=== PATIENT | female | born 1995 | race Caucasian/White ===

== ENCOUNTER 2018-09-10 10:21 | Emergency (ER) | payer MEDICAID ==
[2018-09-10 11:47] LABS: ADD MAN DIFF? NO
[2018-09-10 11:49] LABS: BASOPHILS % 0.3 % (0.0-2.0); EOSINOPHILS # 0.1 10^3/ul (0.0-0.5); EOSINOPHILS % 1.1 % (0.0-7.0); HEMATOCRIT 39.7 % (37.0-47.0); LYMPHOCYTES # 1.7 10^3/ul (0.8-2.9); MEAN CORPUSCULAR HEMOGLOBIN 29.7 pg (29.0-33.0); MEAN CORPUSCULAR HGB CONC 32.7 g/dl (32.0-37.0); MEAN CORPUSCULAR VOLUME 90.8 fl (82.0-101.0); MEAN PLATELET VOLUME 10.4 fl (7.4-10.4); MONOCYTE # 0.5 10^3/ul (0.3-0.9); MONOCYTES % 4.3 % (0.0-11.0); NEUTROPHIL # 9.6 10^3/ul (1.6-7.5); PLATELET COUNT 300 10^3/UL (140-415); RED BLOOD COUNT 4.37 10^6/ul (4.20-5.40); RED CELL DISTRIBUTION WIDTH 12.5 % (11.5-14.5)
[2018-09-10] MEDS: METOCLOPRAMIDE 10 MG INJ IV (11:54)
[2018-09-10] MEDS: SOD CHLORIDE 0.9% 1,000 ML IV (11:54)
[2018-09-10] MEDS: KETOROLAC 30 MG INJ IV (11:54)
[2018-09-10] MEDS: DIPHENHYDRAMINE 50 MG INJ IV (11:54)
[2018-09-10 12:06] LABS: ANION GAP 10 (5-13); BLOOD UREA NITROGEN 9 mg/dl (7-20); CALCIUM 9.9 mg/dl (8.4-10.2); CARBON DIOXIDE 27 mmol/L (21-31); CHLORIDE 101 mmol/L (97-110); CREATININE 0.56 mg/dl (0.44-1.00); Estimated GFR > 60 mL/min (>60); GLUCOSE 125 mg/dl (70-220); SODIUM 138 mmol/L (135-144)
[2018-09-10 12:12] LABS: INR 1.08; PROTIME 14.1 Sec (11.9-14.9); PT RATIO 1.1
[2018-09-10 12:13] LABS: PARTIAL THROMBOPLASTIN TIME 33.3 Sec (23.0-35.0)
== END 2018-09-10 12:31 | disposition home or self-care (01) ==
LOC: FTE 10:21
DX: R51 Headache (principal); R10.9 Unspecified abdominal pain
CPT/HCPCS: 36415; 70450; 80048; 81025; 85025; 85610; 85730; 96361; 96374; 96375; 99285-25